=== PATIENT | female | born 1985 | race Caucasian/White ===

== ENCOUNTER 2021-09-07 05:25 | Day surgery (SDC) | payer MEDICAID ==
[2021-08-31 11:52] LABS: BASOPHILS % (AUTO) 0.5 % (0-1); EOSINOPHILS # (AUTO) 0.1 X10'3 (0-0.9); EOSINOPHILS % (AUTO) 1.3 % (0-6); LYMPHOCYTES # (AUTO) 2.9 X10'3 (1.1-4.8); LYMPHOCYTES % (AUTO) 29.8 % (21-51); MEAN CORPUSCULAR HEMOGLOBIN 29.9 PG (27.0-31.0); MEAN CORPUSCULAR VOLUME 88.1 FL (78-98); MEAN PLATELET VOLUME 8.2 FL (7.4-10.4); MONOCYTES # (AUTO) 0.6 X10'3 (0-0.9); MONOCYTES % (AUTO) 5.8 % (2-12); NEUTROPHILS # (AUTO) 6.1 X10'3 (1.8-7.7); NEUTROPHILS % (AUTO) 62.6 % (42-75); PRE OP HEMATOCRIT 39.7 % (35.0-45.0); PRE OP HEMOGLOBIN 13.5 g/dL (12.0-16.0); PRE OP PLATELET COUNT 399 X10'3 (140-440); RED BLOOD COUNT 4.51 X10'6 (4.20-5.60); RED CELL DISTRIBUTION WIDTH 14.4 % (11.5-14.5)
[2021-08-31 12:10] LABS: ALBUMIN 3.5 G/DL (3.4-5.0); ALBUMIN/GLOBULIN RATIO 0.9 (1.1-1.5); ALKALINE PHOSPHATASE 88 IU/L (46-116); BLOOD UREA NITROGEN 13 MG/DL (7-18); BUN/CREATININE RATIO 16.5 (6.6-38.0); CALCIUM 9.1 MG/DL (8.5-10.1); CHLORIDE 101 MMOL/L (99-107); CREATININE 0.79 MG/DL (0.40-0.90); PRE OP ALT 24 U/L (30-65); PRE OP ANION GAP 12 (8-16); PRE OP AST 13 U/L (10-37); PRE OP BILIRUB, TOTAL 0.3 MG/DL (0.0-1.0); PRE OP GLUCOSE 91 MG/DL (70-104); PRE OP POTASSIUM 4.6 MMOL/L (3.4-5.1); PRE OP SODIUM 140 MMOL/L (135-145); TOTAL CARBON DIOXIDE 27.1 MMOL/L (24-32); TOTAL PROTEIN 7.4 G/DL (6.4-8.2); eGFR 82 ML/MIN
[2021-09-07] VITALS (19 sets, daily range): BP systolic 91–156; BP diastolic 52–89
[~2021-09-07] VITALS: Ht 162.6 cm; Wt 95.3 kg
[~2021-09-07 05:25] MED LIST: IBUP-1984 PO; OXYC-145 PO; ringers solution, lacted 1,000 ML IV SCH
[2021-09-07] MEDS ORDERED: albuterol 2.5 MG/3 ML nebule NEB ONE (05:30)
[2021-09-07] MEDS ORDERED: famotidine 20mg tablet PO ONE (05:30)
[2021-09-07] MEDS ORDERED: cefazolin/dext.iso 2gm/50ml 50 ML IV ONE (06:15)
[2021-09-07] MEDS ORDERED: iohexol 300 MG/1 ML 50ml polymer ONE (06:46)
[2021-09-07] MEDS ORDERED: benzocaine (Anbesol) 12ml bottle MM PRN (06:50)
--- NOTE | 2021-09-07 07:00 | NUR ---
PT HAS BROKEN TOOTH, C/O PAIN CURRENTLY-HAS BEEN USING [facility]AJ[facility] AT HOME, OBTAINED ORDER FROM , ANBESOL USED ON PT TOOTH-PT MORE COMFORTABLE NOW.
[2021-09-07] MEDS ORDERED: morphine 2 MG/ML inj. syringe IV PRN (07:10)
[2021-09-07] MEDS ORDERED: hydrALAZINE 20mg/ml inj. IV PRN (07:10)
[2021-09-07] MEDS ORDERED: labetalol 20mg/4ml (5mg/ml) syringe IV PRN (07:10)
[2021-09-07] MEDS ORDERED: fentaNYL/PF 50MCG/1 ML 2ML syringe IV PRN ×2 (07:10)
[2021-09-07] MEDS ORDERED: ondansetron/PF 4mg/2ml inj IV PRN (07:10)
[2021-09-07] MEDS ORDERED: ringers solution, lacted 1,000 ML IV SCH (07:10)
[2021-09-07] MEDS ORDERED: midazolam 1 mg/ML 2ml injection ONE ×2 (07:11→09:36)
[2021-09-07] MEDS ORDERED: dexamethasone sod phosphate 4mg/ml inj. ONE (07:12)
[2021-09-07] MEDS ORDERED: propofol inj 20 ML IV ONE (07:12)
[2021-09-07] MEDS ORDERED: LIDOcaine 2% (20mg/ml) 5ml vial ONE (07:12)
[2021-09-07] MEDS ORDERED: ondansetron/PF 4mg/2ml inj ONE (07:12)
[2021-09-07] MEDS ORDERED: fentaNYL /PF 50mcg/ml 5ml ampule ONE (07:12)
[2021-09-07] MEDS ORDERED: acetaminophen 1,000mg/100ml IV 100 ML IV ONE (08:28)
[2021-09-07] MEDS ORDERED: ketorolac trometh. 30mg/ml inj. ONE (09:28)
[2021-09-07] MEDS ORDERED: morphine 10mg/ml inj. ONE ×2 (09:36→10:13)
--- NOTE | 2021-09-07 11:23 | NUR ---
Received from OR via [facility] , accompanied by Anesthesiologist DR MORENO and report given by Anesthesiolgist. PT PRESENT WITH PIV 20G LEFT HAND, ABD DRESSING CLEAN DRY AND INTACT, VSS. Addendum: 09/07/21 at 1142 by Fatoumata Pryor RN, RN Amended: Links added.
[2021-09-07] MEDS: morphine 4 MG/ML inj SYRINge IV PRN ×2 (12:21→13:08)
[2021-09-07] MEDS ORDERED: HYDROcodone/acetaminophen 5mg/325mg tablet PO ONE (14:15)
--- NOTE | 2021-09-07 14:23 | NUR ---
PT REPORTS THAT SHE WILL NOT BE GOING BACK TO SEE DR MOTTA TO HAVE STENTS REMOVED. SHE REPORTS "I WILL REMOVE THEM MYSELF".
== END 2021-09-07 14:23 | disposition home or self-care (01) ==
LOC: PAS 05:25
PROVIDERS: ATTEND Urology
DX: N20.0 Calculus of kidney (principal); F41.9 Anxiety disorder, unspecified; F32.A Depression, unspecified; K21.9 Gastro-esophageal reflux disease without esophagitis; Z20.822 Contact with and (suspected) exposure to COVID-19; Z79.899 Other long term (current) drug therapy; Z88.1 Allergy status to other antibiotic agents; Z91.040 Latex allergy status; Z98.890 Other specified postprocedural states; Z87.440 Personal history of urinary (tract) infections; Z87.891 Personal history of nicotine dependence; Z90.710 Acquired absence of both cervix and uterus; Z80.0 Family history of malignant neoplasm of digestive organs; Z82.3 Family history of stroke; Z83.3 Family history of diabetes mellitus
CPT/HCPCS: 36415; 52356; 74420; 80053; 82948; 85025; 93005; C1769; C2617; J0131; J1100; J1885; J2250; J2270; J2274; J2405; J2704; J3010; J3490; J7030; J7120; Q9967; U0003; U0005; Z7506; Z7508; Z7512; 76000; A4618; A7000; C1894

== ENCOUNTER 2022-11-15 14:39 | Emergency (ER) | payer MEDICAID ==
[~2022-11-15] VITALS: Ht 162.6 cm; Wt 98.0 kg
[~2022-11-15 14:39] MED LIST changes: -ringers solution, lacted 1,000 ML IV SCH
[2022-11-15 15:26] LABS: BASOPHILS # (AUTO) 0.1 X10'3 (0-0.2); BASOPHILS % (AUTO) 1.2 % (0-1); EOSINOPHILS # (AUTO) 0.1 X10'3 (0-0.9); EOSINOPHILS % (AUTO) 1.1 % (0-6); HEMATOCRIT 39.9 % (35.0-45.0); HEMOGLOBIN 13.5 g/dl (12.0-16.0); LYMPHOCYTES % (AUTO) 27.8 % (21-51); MEAN CORPUSCULAR HEMOGLOBIN 29.5 PG (27.0-31.0); MEAN CORPUSCULAR HGB CONC 33.9 g/dL (33.0-36.5); MEAN CORPUSCULAR VOLUME 86.9 FL (78-98); MONOCYTES # (AUTO) 0.6 X10'3 (0-0.9); MONOCYTES % (AUTO) 5.2 % (2-12); NEUTROPHILS % (AUTO) 64.7 % (42-75); PLATELET COUNT 437 X10'3 (140-440); RED BLOOD COUNT 4.59 X10'6 (4.20-5.60); RED CELL DISTRIBUTION WIDTH 14.7 % (11.5-14.5); WHITE BLOOD COUNT 10.8 X10'3 (4.5-11.0)
[2022-11-15 15:37] LABS: ALANINE AMINOTRANSFERASE 42 U/L (12-78); ALBUMIN 3.6 G/DL (3.4-5.0); ALBUMIN/GLOBULIN RATIO 0.9 (1.1-1.5); ALKALINE PHOSPHATASE 98 IU/L (46-116); ANION GAP 9 (8-16); ASPARTATE AMINO TRANSFERASE 26 U/L (10-37); BILIRUBIN,TOTAL 0.3 MG/DL (0.1-1.0); BLOOD UREA NITROGEN 11 MG/DL (7-18); BUN/CREATININE RATIO 14.7 (10.0-20.0); CALCIUM 9.4 MG/DL (8.5-10.1); CHLORIDE 101 MMOL/L (99-107); CREATININE 0.75 MG/DL (0.40-0.90); GLUCOSE 123 MG/DL (70-104); LIPASE 108 U/L (73-393); POTASSIUM 3.6 MMOL/L (3.5-5.1); SODIUM 137 MMOL/L (135-145); TOTAL CARBON DIOXIDE 27.3 MMOL/L (24-32); TOTAL PROTEIN 7.8 G/DL (6.4-8.2); eGFR 87 ML/MIN
[2022-11-15 16:11] LABS: CLARITY,URINE CLOUDY (Clear); COLOR,URINE YELLOW (Yellow); GLUCOSE, URINE 100 mg/dl (Neg); KETONES,URINE TRACE mg/dl (Neg); LEUKOCYTE ESTERASE ,URINE SMALL (Neg); NITRITES, URINE POSITIVE (Neg); OCCULT BLOOD,URINE LARGE (Neg); PROTEIN,URINE >=300 mg/dl (Neg); UA COLLECTION TYPE CLN CATCH MIDSTREAM
[2022-11-15 16:13] LABS: URINE HCG NEGATIVE (NEG)
[2022-11-15 16:24] LABS: CYSTINE CRYSTALS 4+ /HPF (NEGATIVE); RBC,URINE TNTC /HPF (0-2)
[2022-11-15 16:25] LABS: BACTERIA,URINE 1+ /HPF (Neg); SQUAMOUS EPITHELIAL CELL,UR MODERATE /LPF (FEW)
[2022-11-15 16:26] LABS: WBC,URINE 20-30 /HPF (0-4)
[2022-11-15] MEDS ORDERED: CEFD300C3 PO (17:12)
[2022-11-15 17:32] VITALS: BP 153/98
== END 2022-11-15 17:32 | disposition home or self-care (01) ==
LOC: ER 14:40
DX: N39.0 Urinary tract infection, site not specified (principal); M79.18 Myalgia, other site; Z87.442 Personal history of urinary calculi; Z88.1 Allergy status to other antibiotic agents; Z91.040 Latex allergy status; Z79.899 Other long term (current) drug therapy
CPT/HCPCS: 36415; 80053; 81001; 81025; 83690; 85025; 87088; 99283

== ENCOUNTER 2024-01-15 12:33 | Day surgery (SDC) | payer MEDICAID ==
[2024-01-15] VITALS (7 sets, daily range): BP systolic 117–132; BP diastolic 66–78; PULSE 78–83; RESP 13–16; TEMP 97.3; O2SAT 91–96
[~2024-01-15] VITALS: Ht 165.1 cm; Wt 100.9 kg
[2024-01-15] MEDS ORDERED: morphine 2 MG/ML inj. syringe IV PRN (13:00)
[2024-01-15] MEDS ORDERED: morphine 4 MG/ML inj SYRINge IV PRN (13:00)
[2024-01-15] MEDS ORDERED: hydrALAZINE 20mg/ml inj. IV PRN (13:00)
[2024-01-15] MEDS ORDERED: HYDROmorphone/PF 0.2 MG/ML SYRINGE IV PRN ×2 (13:00)
[2024-01-15] MEDS ORDERED: labetalol 20mg/4ml (5mg/ml) syringe IV PRN (13:00)
[2024-01-15] MEDS ORDERED: proCHLORperazine 10 MG/2 ml inj IV PRN (13:00)
[2024-01-15] MEDS ORDERED: meperidine/PF 25mg/ml syringe IV PRN (13:00)
[2024-01-15] MEDS ORDERED: sevoflurane 250ml liquid IH ONE (13:12)
[2024-01-15] MEDS ORDERED: CEPH-585 PO (13:23)
[2024-01-15] MEDS ORDERED: fentaNYL/PF 50MCG/1 ML 2ML syringe ONE (13:33)
[2024-01-15] MEDS: iohexol 300 MG/1 ML 50ml polymer ONE (13:55)
[2024-01-15] MEDS ORDERED: midazolam 1 mg/ML 2ml injection ONE (13:57)
[2024-01-15] MEDS ORDERED: dexamethasone sod phosphate 4mg/ml inj. ONE (14:00)
[2024-01-15] MEDS ORDERED: LIDOcaine 2% (20mg/ml) 5ml vial ONE (14:00)
[2024-01-15] MEDS ORDERED: propofol inj 20 ML IV ONE (14:00)
[2024-01-15] MEDS ORDERED: ondansetron/PF 4mg/2ml inj ONE (14:00)
[2024-01-15] MEDS ORDERED: ceFAZolin 1000mg inj ONE ×2 (14:00)
[2024-01-15] MEDS: famotidine/PF 10 mg/ml inj IV ONE (14:23)
[2024-01-15] MEDS: acetaminophen 1,000mg/100ml IV 100 ML IV ONE (14:23)
[2024-01-15] MEDS: ringers solution, lacted 1,000 ML IV SCH (14:26)
[2024-01-15] MEDS: ondansetron/PF 4mg/2ml inj IV PRN (15:01)
== END 2024-01-15 15:03 | disposition home or self-care (01) ==
LOC: PAS 12:33
PROVIDERS: ATTEND Urology
DX: N13.2 Hydronephrosis with renal and ureteral calculous obstruction (principal); E66.9 Obesity, unspecified; Z79.899 Other long term (current) drug therapy; Z68.37 Body mass index [BMI] 37.0-37.9, adult; Z88.1 Allergy status to other antibiotic agents; Z91.040 Latex allergy status
CPT/HCPCS: 52332; 52352; 74019; 74420; 82948; 99285; C2617; J0131; J0690; J1100; J2250; J2405; J2704; J3010; J3490; J7030; J7120; Q9967; Z7506; Z7508; Z7512; 76000; A4618

== ENCOUNTER 2024-09-24 17:40 | Emergency (ER) | payer MEDICAID ==
[~2024-09-24] VITALS: Ht 165.1 cm; Wt 102.7 kg
[2024-09-24 18:27] LABS: BASOPHILS % (AUTO) 0.4 % (0-1); EOSINOPHILS # (AUTO) 0.1 X10'3 (0-0.9); MEAN CORPUSCULAR HGB CONC 33.5 g/dL (33.0-36.5); MEAN PLATELET VOLUME 7.5 FL (7.4-10.4); MONOCYTES # (AUTO) 0.6 X10'3 (0-0.9); WHITE BLOOD COUNT 8.4 X10'3 (4.5-11.0)
[2024-09-24 18:29] LABS: EOSINOPHILS % (AUTO) 0.8 % (0-6); HEMATOCRIT 40.7 % (35.0-45.0); HEMOGLOBIN 13.7 g/dl (12.0-16.0); LYMPHOCYTES # (AUTO) 4.8 X10'3 (1.1-4.8); LYMPHOCYTES % (AUTO) 57.6 % (21-51); MEAN CORPUSCULAR VOLUME 89.5 FL (78-98); NEUTROPHILS # (AUTO) 2.9 X10'3 (1.8-7.7); NEUTROPHILS % (AUTO) 34.2 % (42-75); PLATELET COUNT 283 X10'3 (140-440); RED BLOOD COUNT 4.55 X10'6 (4.20-5.60)
[2024-09-24 18:43] LABS: ALANINE AMINOTRANSFERASE 100 U/L (12-78); ALBUMIN 3.1 G/DL (3.4-5.0); ALBUMIN/GLOBULIN RATIO 0.7 (1.1-1.5); ALKALINE PHOSPHATASE 216 IU/L (46-116); ANION GAP 8 (8-16); ASPARTATE AMINO TRANSFERASE 57 U/L (10-37); BILIRUBIN,TOTAL 0.5 MG/DL (0.1-1.0); BLOOD UREA NITROGEN 11 MG/DL (7-18); BUN/CREATININE RATIO 12.4 (10.0-20.0); CALCIUM 8.9 MG/DL (8.5-10.1); CHLORIDE 101 MMOL/L (99-107); CREATININE 0.89 MG/DL (0.40-0.90); GLUCOSE 135 MG/DL (70-104); LIPASE 27 U/L (16-77); POTASSIUM 3.5 MMOL/L (3.5-5.1); SODIUM 136 MMOL/L (135-145); TOTAL CARBON DIOXIDE 27.5 MMOL/L (24-32); TOTAL PROTEIN 7.6 G/DL (6.4-8.2); eCRCL 76 ML/MIN; eGFR 71 ML/MIN
[2024-09-24 19:03] LABS: PLATELET ESTIMATE NORMAL; TOTAL CELLS COUNTED 100
[2024-09-24] MEDS: ondansetron/PF 4mg/2ml inj IV ONE (19:04)
[2024-09-24] MEDS: normal saline 1000ml 1,000 ML IV ONE (19:04)
[2024-09-24] MEDS: ketorolac trometh 15mg/ml vial 15 MG/ML ML IV ONE (19:04)
[2024-09-24 19:42] LABS: URINE HCG NEGATIVE (NEG)
[2024-09-24 19:45] LABS: BILIRUBIN,URINE NEGATIVE (Neg); CLARITY,URINE CLEAR (Clear); COLOR,URINE YELLOW (Yellow); GLUCOSE, URINE NEGATIVE (Neg); KETONES,URINE NEGATIVE (Neg); LEUKOCYTE ESTERASE ,URINE NEGATIVE (Neg); NITRITES, URINE NEGATIVE (Neg); OCCULT BLOOD,URINE NEGATIVE (Neg); PROTEIN,URINE NEGATIVE (Neg); UROBILINOGEN,URINE 0.2 E.U/dL (0.2-1.0)
[2024-09-24 19:47] LABS: UA COLLECTION TYPE CLN CATCH MIDSTREAM
[2024-09-24] MEDS ORDERED: ONDA-245 PO (20:17)
[2024-09-24] MEDS ORDERED: IBUP-1984 PO (20:17)
[2024-09-24 20:33] VITALS: BP 133/70; PULSE 88; RESP 16; TEMP 97.8; O2SAT 96
== END 2024-09-24 20:35 | disposition home or self-care (01) ==
LOC: ER 17:41
DX: B34.9 Viral infection, unspecified (principal); Z87.442 Personal history of urinary calculi; Z88.1 Allergy status to other antibiotic agents; Z91.040 Latex allergy status
CPT/HCPCS: 36415; 80053; 81003; 81025; 83690; 85007; 85025; 96361; 96374; 96375; 99284; J1885; J2405; J7030